=== PATIENT | male | born 1960 | race African-American/Black ===

== ENCOUNTER 2021-05-19 15:49 | Inpatient (IN) | payer MEDICAID ==
[~2021-05-19] VITALS: Ht 177.8 cm; Wt 72.6 kg
[2021-05-19] MEDS ORDERED: PIPERACILLIN/TAZ 3.375G PREMIX 50 ML IV ONE (16:30)
[2021-05-19] MEDS ORDERED: VANCOMYCIN 1 G PREMIX 200 ML IV ONE (16:30)
[2021-05-19] MEDS ORDERED: SODIUM CHLORIDE 0.9% 1000ML BAG (SEPSIS BOLUS) IV ONE (16:30)
[2021-05-19 17:16] LABS: EOSINOPHILS % 0.6 % (0.0-5.0); HEMATOCRIT. 35.2 % (42.0-52.0); HEMOGLOBIN. 12.2 g/dL (14.0-18.0); LYMPHOCYTES % 28.7 % (20.0-50.0); MEAN CORPUSCULAR HEMOGLOBIN 35.9 pg (28.0-32.0); MEAN CORPUSCULAR VOLUME 103.6 fL (80.0-94.0); MEAN PLATELET VOLUME 8.9 fl (7.4-10.4); MONOCYTES % 7.8 % (2.0-8.0); NEUTROPHILS % 61.9 % (40.0-76.0); PLATELET 163 x1000/uL (130-400); RED CELL DISTRIBUTION WIDTH 14.8 % (11.6-14.6)
[2021-05-19 17:23] LABS: CHLORIDE 106 mEq/L (98-107)
[2021-05-19 18:07] LABS: CLARITY URINE CLEAR (CLEAR); COLOR URINE YELLOW (YELLOW); KETONES URINE NEGATIVE (NEGATIVE); LEUKOCYTE ESTERASE URINE NEGATIVE (NEGATIVE); NITRITE URINE NEGATIVE (NEGATIVE); OCCULT BLOOD URINE NEGATIVE (NEGATIVE); PROTEIN URINE NEGATIVE (NEGATIVE); SPECIFIC GRAVITY URINE 1.008 (1.005-1.030); UROBILINOGEN URINE 0.2 E.U./dL (0.2-1.0)
[2021-05-19] MEDS ORDERED: HYDROCORTISONE SOD SUCCINATE 100 MG/2 ML VIAL IV ONE (20:30)
[2021-05-19] MEDS ORDERED: NOREPINEPHRINE 8MG/250ML PMX 250 ML IV ONE (21:00)
[2021-05-19] MEDS ORDERED: FUROSEMIDE 40MG/4ML VIAL IVP ONE (21:00)
[2021-05-19] MEDS ORDERED: KCL 10MEQ/50ML PREMIX 50 ML IV ONE (22:15)
[2021-05-20] VITALS (53 sets, daily range): BP systolic 88–137; BP diastolic 45–85
[2021-05-20] MEDS ORDERED: ONDANSETRON HCL 4MG/2ML INJ IV PRN (06:00)
[2021-05-20 06:46] LABS: BASOPHILS % 0.7 % (0.0-2.0); EOSINOPHILS % 0.1 % (0.0-5.0); HEMATOCRIT. 27.6 % (42.0-52.0); HEMOGLOBIN. 9.7 g/dL (14.0-18.0); LYMPHOCYTES % 16.5 % (20.0-50.0); MEAN PLATELET VOLUME 9.1 fl (7.4-10.4); MONOCYTES % 4.2 % (2.0-8.0); NEUTROPHILS % 78.5 % (40.0-76.0); PLATELET 147 x1000/uL (130-400); RED BLOOD CELL COUNT 2.71 mill/uL (4.7-6.1); RED CELL DISTRIBUTION WIDTH 14.8 % (11.6-14.6)
[2021-05-20] MEDS ORDERED: NOREPINEPHRINE 8 MG in DEXT 5% WATER 242 ML IV PRN (07:00)
[2021-05-20] MEDS ORDERED: PIPERACILLIN/TAZOBACTAM 3.375G in DEXT 5% WATER 50ML IV SCH (08:00)
[2021-05-20] MEDS: PANTOPRAZOLE SODIUM 40 MG/VIAL IV SCH (08:27)
[2021-05-20] MEDS ORDERED: VANCOMYCIN 750 MG PREMIX 150 ML IV SCH (09:00)
[2021-05-20] MEDS ORDERED: POTASSIUM CHLORIDE INJ 60 MEQ in DEXT 5% WATER 500 ML IV NR (09:00)
[2021-05-20] MEDS ORDERED: PIPERACILLIN/TAZOBACTAM 3.375 G in DEXTROSE 5% WATER 50 ML IV SCH (09:00)
[2021-05-20] MEDS ORDERED: POTASSIUM CHLORIDE 20MEQ TABLET SR PO NR (09:30)
[2021-05-20] MEDS ORDERED: CALCIUM GLUCONATE 1,000 MG in DEXT 5% WATER 90 ML IV ONE (09:30)
[2021-05-20] MEDS ORDERED: CALCIUM GLUCONATE 1GM PREMIX 50 ML IV NR (11:00)
[2021-05-20] MEDS ORDERED: MAGNESIUM 4 G PREMIX 100 ML IV NR (12:00)
[2021-05-20] MEDS: MIDODRINE HCL 5MG TABLET PO SCH ×2 (12:15→17:13)
[2021-05-20 13:25] LABS: CANNABINOID URINE SCREEN PRESUMTIVE POSITIVE (NEGATIVE); PHENCYCLIDINE URINE SCREEN NEGATIVE (NEGATIVE)
[2021-05-20 13:26] LABS: *BARBITURATES SCREEN URINE NEGATIVE (NEGATIVE)
[2021-05-20 13:28] LABS: *COCAINE SCREEN URINE PRESUMTIVE POSITIVE (NEGATIVE); METHADONE URINE SCREEN NEGATIVE (NEGATIVE)
[2021-05-20 13:30] LABS: OPIATES URINE SCREEN NEGATIVE (NEGATIVE)
[2021-05-20 13:32] LABS: *AMPHETAMINES SCREEN URINE NEGATIVE (NEGATIVE); *BENZODIAZEPINES SCREEN URINE NEGATIVE (NEGATIVE)
[2021-05-20] MEDS ORDERED: ATOR10TA MT (13:46)
[2021-05-20] MEDS ORDERED: FURO20TA4 MT (13:46)
[2021-05-20] MEDS ORDERED: AMLO5TAB88 MT (13:46)
[2021-05-20] MEDS ORDERED: METO-396 MT (13:46)
[2021-05-20] MEDS ORDERED: RIVA10TA MT (15:23)
[2021-05-20] MEDS ORDERED: AMI2 MT (15:23)
[2021-05-20] MEDS ORDERED: METO5TAB7 MT (15:23)
[2021-05-21] VITALS (69 sets, daily range): BP systolic 90–131; BP diastolic 35–100
[2021-05-21 06:22] LABS: BASOPHILS % 1.1 % (0.0-2.0); EOSINOPHILS % 1.1 % (0.0-5.0); HEMOGLOBIN. 12.5 g/dL (14.0-18.0); LYMPHOCYTES % 37.7 % (20.0-50.0); MEAN CORPUSCULAR HEMOGLOBIN 35.9 pg (28.0-32.0); MEAN PLATELET VOLUME 9.2 fl (7.4-10.4); MONOCYTES % 8.4 % (2.0-8.0); NEUTROPHILS % 51.7 % (40.0-76.0); PLATELET 171 x1000/uL (130-400); RED BLOOD CELL COUNT 3.47 mill/uL (4.7-6.1); RED CELL DISTRIBUTION WIDTH 14.7 % (11.6-14.6)
[2021-05-21] MEDS ORDERED: PNEUMOCOCCAL 23-VAL P-SAC VAC 0.5 ML IM ONE (08:00)
[2021-05-21] MEDS: PANTOPRAZOLE SODIUM 40 MG/VIAL IV SCH (09:36)
[2021-05-21] MEDS: MIDODRINE HCL 5MG TABLET PO SCH ×3 (09:36→16:43)
[2021-05-22] VITALS (11 sets, daily range): BP systolic 87–130; BP diastolic 42–69
[2021-05-22 06:18] LABS: BASOPHILS % 0.8 % (0.0-2.0); EOSINOPHILS % 1.9 % (0.0-5.0); HEMATOCRIT. 36.8 % (42.0-52.0); HEMOGLOBIN. 12.6 g/dL (14.0-18.0); LYMPHOCYTES % 42.3 % (20.0-50.0); MEAN CORPUSCULAR HEMOGLOBIN 35.5 pg (28.0-32.0); MEAN CORPUSCULAR VOLUME 103.8 fL (80.0-94.0); MEAN PLATELET VOLUME 9.8 fl (7.4-10.4); MONOCYTES % 9.3 % (2.0-8.0); NEUTROPHILS % 45.7 % (40.0-76.0); PLATELET 155 x1000/uL (130-400); RED BLOOD CELL COUNT 3.54 mill/uL (4.7-6.1); RED CELL DISTRIBUTION WIDTH 14.7 % (11.6-14.6)
[2021-05-22 07:09] LABS: CHLORIDE 104 mEq/L (98-107)
[2021-05-22] MEDS: PANTOPRAZOLE SODIUM 40 MG/VIAL IV SCH (09:26)
[2021-05-22] MEDS: MIDODRINE HCL 5MG TABLET PO SCH ×2 (09:27→13:02)
[2021-05-22] MEDS ORDERED: ACETAMINOPHEN 325MG TABLET PO PRN (11:15)
[2021-05-22] MEDS ORDERED: FAMOTIDINE 20MG/2ML VIAL IV SCH (21:00)
[2021-06-17] MEDS ORDERED: FURO40TA5 PO (17:55)
[2021-06-17] MEDS ORDERED: RIVA20TA PO (17:55)
[2021-06-17] MEDS ORDERED: ASPI-1160 PO (17:55)
== END 2021-05-22 15:45 | disposition home or self-care (01) | DRG 48 ==
LOC: ER 15:49 → ENRESERV 18:55 → CANRESERV 18:55 → EDBEDREQSVC 20:57 → EDBEDREQTM 20:57 → MICUSO 05-20 03:13 → CVICU 05-20 03:58 → 3WST 05-21 14:36
PROVIDERS: ADMIT Internal Medicine; ATTEND Internal Medicine
DX: G90.8 Other disorders of autonomic nervous system (principal); R57.1 Hypovolemic shock; N17.0 Acute kidney failure with tubular necrosis; I95.9 Hypotension, unspecified; E87.2 Acidosis; M62.82 Rhabdomyolysis; I42.0 Dilated cardiomyopathy; E44.1 Mild protein-calorie malnutrition; I11.0 Hypertensive heart disease with heart failure; I50.22 Chronic systolic (congestive) heart failure; G93.89 Other specified disorders of brain; D64.9 Anemia, unspecified; D72.819 Decreased white blood cell count, unspecified; Z68.23 Body mass index [BMI] 23.0-23.9, adult; E83.42 Hypomagnesemia; E86.1 Hypovolemia; E87.6 Hypokalemia; F12.90 Cannabis use, unspecified, uncomplicated; F14.10 Cocaine abuse, uncomplicated; F17.210 Nicotine dependence, cigarettes, uncomplicated; Z71.51 Drug abuse counseling and surveillance of drug abuser; Z71.6 Tobacco abuse counseling; I49.3 Ventricular premature depolarization; Z59.0 Homelessness; Z79.82 Long term (current) use of aspirin; Z96.643 Presence of artificial hip joint, bilateral
CPT/HCPCS: 36415; 71045; 74176; 80048; 80053; 80202; 80305; 81003; 82310; 82533; 83605; 83735; 83880; 84132; 84145; 84484; 85025; 90732; 93005; 93306; 99291; C9113; J0610; J1720; J1940; J2405; J2543; J3370; J3475; J3480; J3490; J7030; J7040; J7060